=== PATIENT | female | born 1950 | race Caucasian/White ===

== ENCOUNTER 2016-03-10 18:59 | Observation (INO) | payer OTHER ==
[~2016-03-10] VITALS: Ht 165.1 cm; Wt 110.4 kg
[~2016-03-10 18:59] MED LIST: ACTOS15 MG PO; ALAVERT10 MG PO; ASPIR-LOW81 MG PO; ATARAX,VISTARIL50 MG PO; ATIVAN0.5 MG PO; ATORVASTATIN CA40 MG PO; BACTRIM,SEPT1 TABLET PO; BENADRYL50 MG; BENADRYL50 MG PO; BENADRYL50 MG/ML PO; CIPRO500 MG PO; CIPROFLOXACIN500 M1 PO; CLARITIN,ALAVAR10 MG PO; CLEOCIN150 MG PO; COLACE100 MG PO; CYANOCOBALAM1000 MCG PO; DESYREL 150 MG150 MG; DESYREL 150 MG150 MG PO; DICLOFENAC SODI75 MG; DICLOFENAC SODI75 MG PO; DIPHENHYDRAMINE50 M1 PO; DOXYCYCLINE HY100 M3 PO; FENOFIBRIC ACI135 MG; FEROSUL325 MG PO; GABAPENTIN PO; GLIPIZIDE XL10 MG PO; GLIPIZIDE10 M1 PO; GLIPIZIDE10 MG PO; GLUCOPHAGE1000 MG PO; GLUCOPHAGE850 MG PO; HYDROXYZINE HCL50 MG PO; JOCK ITCH RELIE15 GM TP; KEFLEX500 MG PO; LASIX20 MG PO; LORATADINE10 M2 PO; LORAZEPAM0.5 MG; LORAZEPAM0.5 MG PO; LOTRIMIN AF24 GM TP; MECLIZINE HCL25 MG; MEDROL DOSEPAK4 MG PO; MELOXICAM15 MG PO; METFORMIN HCL1000 M1; METOCLOPRAMIDE10 MG PO; METOLAZONE10 MG PO; METOPROLOL SUCC50 MG PO; METOPROLOL TART50 MG PO; METRONIDAZOLE500 MG PO; METRONIDAZOLE70 GM; MOTRIN600 MG PO; MULTIVITAMIN1 EAC2 PO; NAPROSYN500 MG PO; NEURONTIN300 MG PO; NICOTINE PATCH1 EAC1 TD; NORCO 5/3251 TABLET PO; PAXIL20 MG PO; PERCOCET 5/31 TABLET PO; PHILLIPS' LAXA100 MG PO; PIOGLITAZONE HC15 MG; PIOGLITAZONE HC15 MG PO; PREDNISONE20 MG PO; PRILOSEC OTC20 MG PO; PRILOSEC10 MG PO; PRILOSEC20 MG PO; PRINIVIL5 MG PO; PROTONIX40 MG PO; RAMIPRIL10 MG PO; RANITIDINE HCL300 MG; RANITIDINE HCL300 MG PO; SEROQUEL100 MG PO; SEROQUEL200 MG PO; SEROQUEL50 MG PO; TRAMADOL HCL50 MG PO; TRAZODONE; TRILIPIX135 MG PO; ULTRACET1 TABLET PO; VENTOLIN HFA18 GM IH
[2016-03-10 19:59] LABS: HEMATOCRIT 31.1 % (36.0-46.0); MCHC 32.2 G/DL (30.0-36.0); MCV 80.8 FL (83-99); MEAN PLAT.VOLUME 10.9 uM^3 (9.5-12.4); PLATELET COUNT 173 K/uL (156-360); RBC DIS.WIDTH-CV 18.3 % (11.8-14.6); RBC DIS.WIDTH-SD 51.9 % (39-53); RED BLOOD COUNT 3.85 M/uL (3.80-5.20); WHITE BLOOD COUNT 4.7 K/uL (4.1-10.2)
[2016-03-10 20:11] LABS: CHLORIDE 97 mEq/L (99-109); POTASSIUM 3.9 mEq/L (3.7-5.4); SODIUM 135 mEq/L (136-147)
[2016-03-10 20:13] LABS: GLUCOSE 95 mg/dL (70-99)
[2016-03-10 20:14] LABS: ANION GAP 10 MEQ/L (2-14)
[2016-03-10 20:17] LABS: GFR ESTIMATE (CALCULATED) > 59 mL/min/; UREA NITROGEN (BUN) 12 mg/dL (9-23)
[2016-03-10 22:35] LABS: TROP-I INTERPRETATION NEGATIVE; TROPONIN-I < 0.01 ng/mL (0.0-0.30)
[2016-03-11] MEDS ORDERED: LO-DOSE ASPIRIN81 M1 PO (00:58)
[2016-03-11] MEDS ORDERED: COZAAR25 MG PO (00:59)
[2016-03-11] MEDS ORDERED: MOBIC15 MG PO (01:00)
[2016-03-11] MEDS ORDERED: DAILY VITE1 EAC1 PO (01:01)
[2016-03-11] MEDS ORDERED: PRILOSEC OTC20 MG PO (01:03)
[2016-03-11] MEDS ORDERED: TRAMADOL HCL50 MG PO (01:04)
[2016-03-11 02:50] LABS: ADD MIUA? NO; BILIRUBIN NEGATIVE; BLOOD NEGATIVE; COLOR YELLOW ((YELLOW)); GLUCOSE (STRIP) NEGATIVE; KETONES TRACE; LEUKOCYTES NEGATIVE; NITRITE NEGATIVE; PROTEIN (STRIP) NEGATIVE; SPECIFIC GRAVITY 1.034 (1.000-1.030); UROBILINOGEN 0.2 MG/DL (0.2-1.0)
[2016-03-11 03:35] LABS: INFLUENZA A VIRAL ANTIGEN NEGATIVE; INFLUENZA B VIRAL ANTIGEN NEGATIVE
[2016-03-11 04:21] LABS: POINT-OF-CARE METER ID UU13113725
[2016-03-11 06:10] LABS: POINT-OF-CARE METER ID UU13113717
[2016-03-11 07:04] LABS: HEMATOCRIT 30.2 % (36.0-46.0); MCH 26.1 PG (29.0-34.0); MCHC 32.5 G/DL (30.0-36.0); MCV 80.5 FL (83-99); MEAN PLAT.VOLUME 11.1 uM^3 (9.5-12.4); PLATELET COUNT 177 K/uL (156-360); RBC DIS.WIDTH-CV 18.3 % (11.8-14.6); RED BLOOD COUNT 3.75 M/uL (3.80-5.20); WHITE BLOOD COUNT 4.6 K/uL (4.1-10.2)
[2016-03-11 07:31] LABS: ALKALINE PHOSPHATASE 91 IU/L (3-129); ANION GAP 11 MEQ/L (2-14); CHLORIDE 96 MEQ/L (99-109); GFR ESTIMATE (CALCULATED) > 59 mL/min/; SAMPLE HEMOLYSIS CHECK 0; SAMPLE ICTERIC CHECK 0; SAMPLE LIPEMIA CHECK 0; SODIUM 134 MEQ/L (136-147); TOTAL BILIRUBIN 0.3 MG/DL (0.0-1.0); UREA NITROGEN (BUN) 12 mg/dL (9-23)
[2016-03-11 07:34] LABS: GLUCOSE 214 mg/dL (70-99)
[2016-03-11 07:50] VITALS: BP 212/95
[2016-03-11 10:30] VITALS: BP 164/92
[2016-03-11 11:20] LABS: POINT-OF-CARE METER ID UU13113717
[2016-03-11 16:28] LABS: POINT-OF-CARE METER ID UU13113725
[2016-03-11 16:41] VITALS: BP 223/89
[2016-03-11 18:56] VITALS: BP 150/80
[2016-03-11 20:25] VITALS: BP 09/58
[2016-03-11 20:59] LABS: POINT-OF-CARE METER ID UU13113725
[2016-03-11 22:50] VITALS: BP 174/72
[2016-03-12 05:57] LABS: POINT-OF-CARE METER ID UU13113725
[2016-03-12 07:26] LABS: POINT-OF-CARE METER ID UU13113725
[2016-03-12 08:40] VITALS: BP 180/79
[2016-03-12 11:22] LABS: POINT-OF-CARE METER ID UU13113725
[2016-03-12 15:56] VITALS: BP 180/79
[2016-03-12 16:01] LABS: POINT-OF-CARE METER ID UU13113725
[2016-03-13] VITALS: BP 172/72
[2016-03-13 06:05] LABS: POINT-OF-CARE METER ID UU13113717
[2016-03-13 08:15] VITALS: BP 198/88
[2016-03-13 11:18] VITALS: BP 186/72
[2016-03-13] MEDS ORDERED: LOSARTAN POTASS50 MG PO (11:24)
[2016-03-13] MEDS ORDERED: PREDNISONE5 MG PO (11:24)
[2016-03-13] MEDS ORDERED: VENTOLIN HFA18 GM IH (11:24)
[2016-03-13] MEDS ORDERED: SPIRIVA RESPIMAT4 GM IH (11:24)
[2016-03-13] MEDS ORDERED: DUONEB 2.5-0.5 M3 ML AEROSOL (11:24)
[2016-03-13 11:25] LABS: POINT-OF-CARE METER ID UU13113717
[2016-03-13] MEDS ORDERED: ADVAIR HFA120 INHALA IH (12:15)
[2016-03-13] MEDS ORDERED: QVAR 80 MCG IN7.3 GM IH (12:21)
[2016-03-13] MEDS ORDERED: INCRUSE ELLI62.5 MCG IH (12:22)
[2016-03-13 12:55] VITALS: BP 162/68
== END 2016-03-13 15:06 | disposition home or self-care (01) ==
LOC: EME 18:59 → RME 18:59 → 5EAST 03-11 01:40 → EDOF 03-11 01:40 → 5EAST 03-11 03:20
PROVIDERS: Emergency Medicine; Internal Medicine
DX: J44.1 Chronic obstructive pulmonary disease with (acute) exacerbation (principal); J96.91 Respiratory failure, unspecified with hypoxia; F17.200 Nicotine dependence, unspecified, uncomplicated; E11.9 Type 2 diabetes mellitus without complications; I10 Essential (primary) hypertension; F25.9 Schizoaffective disorder, unspecified; E78.5 Hyperlipidemia, unspecified; Z86.73 Personal history of transient ischemic attack (TIA), and cerebral infarction without residual deficits; I25.10 Atherosclerotic heart disease of native coronary artery without angina pectoris; Z95.1 Presence of aortocoronary bypass graft; Z79.82 Long term (current) use of aspirin; Z79.84 Long term (current) use of oral hypoglycemic drugs; E66.01 Morbid (severe) obesity due to excess calories; Z68.41 Body mass index [BMI] 40.0-44.9, adult; D64.9 Anemia, unspecified; K21.9 Gastro-esophageal reflux disease without esophagitis; F32.9 Major depressive disorder, single episode, unspecified
CPT/HCPCS: 71020; 71275; 80048; 80053; 81003; 82948; 83605; 84484; 85027; 85379; 87040; 87502; 93005; 94640; 94640 76; 94644; 94760; 94799; 97530 GO; 99202; 99281; 99284; G0378; G8978 GP CI; G8979 GP CH; J0360; J1100; J1644; J1815; J2930; J7512

== ENCOUNTER 2016-09-30 22:04 | Emergency (ER) | payer OTHER ==
[~2016-09-30] VITALS: Ht 165.1 cm; Wt 113.0 kg
[~2016-09-30 22:04] MED LIST changes: +ADVAIR HFA120 INHALA IH; +COZAAR25 MG PO; +DAILY VITE1 EAC1 PO; +DUONEB 2.5-0.5 M3 ML AEROSOL; +INCRUSE ELLI62.5 MCG IH; +LO-DOSE ASPIRIN81 M1 PO; +LOSARTAN POTASS50 MG PO; +MOBIC15 MG PO; +PREDNISONE5 MG PO; +QVAR 80 MCG IN7.3 GM IH; +SPIRIVA RESPIMAT4 GM IH
[2016-09-30 22:29] LABS: MCH 28.7 PG (29.0-34.0); MCHC 32.7 G/DL (30.0-36.0); MCV 87.8 FL (83-99); MEAN PLAT.VOLUME 10.4 uM^3 (9.5-12.4); PLATELET COUNT 213 K/uL (156-360); RBC DIS.WIDTH-CV 16.3 % (11.8-14.6); RBC DIS.WIDTH-SD 53.2 % (39-53); RED BLOOD COUNT 3.76 M/uL (3.80-5.20); WHITE BLOOD COUNT 8.1 K/uL (4.1-10.2)
[2016-09-30 22:40] LABS: CHLORIDE 97 mEq/L (99-109); POTASSIUM 4.4 mEq/L (3.7-5.4); SODIUM 133 mEq/L (136-147)
[2016-09-30 22:42] LABS: GLUCOSE 139 mg/dL (70-99)
[2016-09-30 22:43] LABS: ANION GAP 13 MEQ/L (2-14)
[2016-09-30 22:44] LABS: TOTAL BILIRUBIN 0.2 mg/dL (0.0-1.0)
[2016-09-30 22:46] LABS: ALKALINE PHOSPHATASE 96 IU/L (3-129); GFR ESTIMATE (CALCULATED) > 59 mL/min/
[2016-09-30 22:47] LABS: UREA NITROGEN (BUN) 12 mg/dL (9-23)
[2016-09-30 22:48] LABS: DIRECT BILIRUBIN 0.1 mg/dL (0.0-0.3)
[2016-09-30 22:49] LABS: LIPASE 21 U/L (1.0-51.0); TROP-I INTERPRETATION NEGATIVE; TROPONIN-I < 0.01 ng/mL (0.0-0.30)
[2016-10-01 00:41] LABS: TROP-I INTERPRETATION NEGATIVE; TROPONIN-I < 0.01 ng/mL (0.0-0.30)
[2016-10-01] MEDS ORDERED: ZANTAC150 MG PO (00:48)
[2016-10-01 01:06] VITALS: BP 184/81
== END 2016-10-01 01:06 | disposition home or self-care (01) ==
LOC: EME → EDBD 22:04 → EME 10-01 01:06
PROVIDERS: Emergency Medicine
DX: K29.00 Acute gastritis without bleeding (principal); K21.9 Gastro-esophageal reflux disease without esophagitis; I10 Essential (primary) hypertension; E11.9 Type 2 diabetes mellitus without complications; F17.200 Nicotine dependence, unspecified, uncomplicated
CPT/HCPCS: 71020; 80048; 80076; 83690; 84484; 85027; 93005; 99281; 99284

== ENCOUNTER 2017-09-03 18:57 | Emergency (ER) | payer OTHER ==
[~2017-09-03] VITALS: Ht 167.6 cm; Wt 111.1 kg
[~2017-09-03 18:57] MED LIST changes: +ZANTAC150 MG PO
[2017-09-03 19:45] LABS: BASOPHIL (%) 0 % (0-1); EOSINOPHIL (%) 0 % (0-5); HEMATOCRIT 31.8 % (36.0-46.0); HEMOGLOBIN 10.9 G/DL (11.9-15.5); IMMATURE GRANULOCYTE (%) 0.3 % (0.0-0.7); LYMPHOCYTE (%) 39.9 % (15-42); LYMPHOCYTE COUNT 2.5 K/uL (1.0-2.8); MCH 31.1 PG (29.0-34.0); MCHC 34.3 G/DL (30.0-36.0); MCV 90.6 FL (83-99); MONOCYTE COUNT 0.5 K/uL (0-0.8); NEUTROPHIL (%) 51.8 % (45-76); NEUTROPHIL COUNT 3.2 K/uL (1.8-6.4); PLATELET COUNT 157 K/uL (156-360); RBC DIS.WIDTH-CV 15.3 % (11.8-14.6); RBC DIS.WIDTH-SD 50.3 % (39-53); RED BLOOD COUNT 3.51 M/uL (3.80-5.20); WHITE BLOOD COUNT 6.2 K/uL (4.1-10.2)
[2017-09-03 19:55] LABS: ALBUMIN 3.8 g/dL (3.2-4.8)
[2017-09-03 19:56] LABS: CHLORIDE 101 mEq/L (99-109); SODIUM 135 mEq/L (136-147)
[2017-09-03 19:58] LABS: GLUCOSE 117 mg/dL (70-99)
[2017-09-03 20:00] LABS: TOTAL BILIRUBIN 0.3 mg/dL (0.0-1.0)
[2017-09-03 20:01] LABS: ALKALINE PHOSPHATASE 80 IU/L (3-129)
[2017-09-03 20:02] LABS: CREATININE 1.1 mg/dL (0.6-1.3); GFR ESTIMATE (CALCULATED) 53 mL/min/
[2017-09-03 20:03] LABS: AST (GOT) 13 IU/L (2-34); UREA NITROGEN (BUN) 13 mg/dL (9-23)
[2017-09-03 20:04] LABS: ALT (GPT) 13 IU/L (3-49)
[2017-09-03 20:05] LABS: LIPASE 10 U/L (1.0-51.0)
[2017-09-03 21:51] LABS: APPEARANCE CLEAR ((CLEAR)); BILIRUBIN NEGATIVE; BLOOD NEGATIVE; COLOR STRAW ((YELLOW)); GLUCOSE (STRIP) NEGATIVE; KETONES NEGATIVE; LEUKOCYTES TRACE; NITRITE POSITIVE; PROTEIN (STRIP) NEGATIVE; UROBILINOGEN 0.2 MG/DL (0.2-1.0)
[2017-09-03 22:22] LABS: RED BLOOD CELLS NONE SEEN /HPF (0-5)
[2017-09-03 22:23] LABS: EPITHELIAL CELLS RARE /HPF
[2017-09-03 22:24] LABS: UCUL ADDED? YES
[2017-09-03 22:27] LABS: BACTERIA 4+ /HPF
[2017-09-03 22:29] LABS: MUCUS TRACE /LPF; WHITE BLOOD CELLS 0-5 /HPF (0-5)
[2017-09-03] MEDS ORDERED: KEFLEX500 MG PO (22:52)
[2017-09-03 23:13] VITALS: BP 184/94
== END 2017-09-03 23:14 | disposition home or self-care (01) ==
LOC: EME 18:57
PROVIDERS: Emergency Medicine
DX: N39.0 Urinary tract infection, site not specified (principal); R19.7 Diarrhea, unspecified; Z87.19 Personal history of other diseases of the digestive system; K42.9 Umbilical hernia without obstruction or gangrene; I10 Essential (primary) hypertension; E11.9 Type 2 diabetes mellitus without complications; K21.9 Gastro-esophageal reflux disease without esophagitis; B96.1 Klebsiella pneumoniae [K. pneumoniae] as the cause of diseases classified elsewhere; F17.200 Nicotine dependence, unspecified, uncomplicated; Z79.82 Long term (current) use of aspirin; Z79.84 Long term (current) use of oral hypoglycemic drugs; Z79.891 Long term (current) use of opiate analgesic; Z86.73 Personal history of transient ischemic attack (TIA), and cerebral infarction without residual deficits; J30.2 Other seasonal allergic rhinitis
CPT/HCPCS: 74177; 80053; 81003; 83690; 85025; 87077; 87086 GA; 87186; 99281; 99285; J7040